=== PATIENT | male | born 1960 | race Hispanic/Latino ===

== ENCOUNTER 2017-07-21 10:07 | Emergency (ER) | payer OTHER ==
[~2017-07-21] VITALS: Ht 167.6 cm; Wt 35.6 kg
[2017-07-21] MEDS ORDERED: KEFLEX500 MG PO (13:03)
[2017-07-21 13:22] VITALS: BP 130/89
== END 2017-07-21 13:24 | disposition home or self-care (01) ==
LOC: EME 10:07
PROC: 0HQLXZZ Repair Left Lower Leg Skin, External Approach (ICD-10-PCS; principal; 2017-07-21)
DX: S91.312A Laceration without foreign body, left foot, initial encounter (principal); W45.8XXA Other foreign body or object entering through skin, initial encounter; W20.8XXA Other cause of strike by thrown, projected or falling object, initial encounter; Y99.0 Civilian activity done for income or pay
CPT/HCPCS: 73610; 99281; 99284